=== PATIENT | female | born 1955 | race Caucasian/White ===

== ENCOUNTER → 2025-04-14 07:39 | Outpatient (REF) | payer MEDICARE, OTHER, SELFPAY | LOC: MRI 07:39 | PROVIDERS: ATTENDING PHYSICIAN Specialist; FAMILY PHYSICIAN Family Medicine; REFERRING PHYSICIAN Orthopaedic Surgery Orthopaedic Surgery of the Spine | DX: G95.9 Disease of spinal cord, unspecified (principal) | CPT/HCPCS: 72157; A9575 ==